=== PATIENT | male | born 1950 | race Caucasian/White ===

== ENCOUNTER 2018-04-09 07:32 | Outpatient (CLI) | payer OTHER ==
[2018-04-18] MEDS ORDERED: PRILOSEC10 M2 PO (10:01)
== END 2018-04-09 07:37 | disposition home or self-care (01) ==
LOC: RAD 07:32
DX: Z76.89 Persons encountering health services in other specified circumstances (principal)

== ENCOUNTER 2018-04-09 08:27 | Outpatient (CLI) | payer OTHER ==
[2018-04-18] MEDS ORDERED: PRILOSEC10 M2 PO (10:01)
== END 2018-04-09 08:34 | disposition home or self-care (01) ==
LOC: EKG 08:27
DX: I49.8 Other specified cardiac arrhythmias (principal)

== ENCOUNTER → 2018-04-24 | Day surgery (SDC) | payer OTHER ==
[~2018-04-24] MED LIST: PRILOSEC10 M2 PO
== END | disposition home or self-care (01) ==
LOC: ADM 04-20 07:30 → CIR.AMB 07:30
DX: M75.121 Complete rotator cuff tear or rupture of right shoulder, not specified as traumatic (principal); M19.011 Primary osteoarthritis, right shoulder; M65.811 Other synovitis and tenosynovitis, right shoulder

== ENCOUNTER 2018-04-26 09:49 | Outpatient (CLI) | payer OTHER | END 2018-04-26 10:02 | disposition home or self-care (01) | LOC: RAD 501 09:49 | DX: M19.011 Primary osteoarthritis, right shoulder (principal) ==

== ENCOUNTER 2021-08-03 13:28 | Outpatient (CLI) | payer OTHER | END 2021-08-03 13:36 | disposition home or self-care (01) | LOC: RAD 13:28 | PROVIDERS: ATTEND Orthopaedic Surgery | DX: M25.552 Pain in left hip (principal); M17.12 Unilateral primary osteoarthritis, left knee ==

== ENCOUNTER 2022-04-07 08:45 | Outpatient (CLI) | payer OTHER | END 2022-04-07 08:50 | disposition home or self-care (01) | LOC: RAD 08:45 | PROVIDERS: ATTEND Orthopaedic Surgery | DX: M17.0 Bilateral primary osteoarthritis of knee (principal) ==

== ENCOUNTER 2022-10-20 10:59 | Outpatient (CLI) | payer OTHER | END 2022-10-20 11:03 | disposition home or self-care (01) | LOC: RAD 10:59 | PROVIDERS: ATTEND Orthopaedic Surgery | DX: M79.605 Pain in left leg (principal) ==

== ENCOUNTER 2024-12-16 06:56 | Outpatient (CLI) | payer OTHER ==
[2024-12-16 08:00] LABS: HEMATOCRIT 43.9 % (39.0-48.0); HEMOGLOBIN 15.6 g/dL (13-16.00); MEAN CELL VOLUME 86.1 fL (80.0-100.00); MEAN CORPUSCULAR HEMOGLOBIN 30.6 pg (27.00-32.0); MEAN CORPUSCULAR HGB CONC 35.5 g/dl (32.0-36.0); PLATELET COUNT 202 K/uL (150-450); RED CELL DISTRIBUTION WIDTH 14.1 % (11.5-14.5)
[2024-12-16 08:09] LABS: PH,URINE 5.5 (5.0-8.0); URINE APPEARANCE Clear; URINE BILIRRUBIN Negative (NEGATIVE); URINE BLOOD Negative; URINE COLOR Yellow; URINE GLUCOSE Negative (NEGATIVE); URINE KETONE Negative (NEGATIVE); URINE LEUKOCYTE Negative; URINE NITRATE Negative; URINE PROTEIN Negative (NEGATIVE); URINE UROBILINOGEN 0.2 E.U./dl
[2024-12-16 08:11] LABS: URINE BACTERIA 3.6 uL (0.0-1933); URINE EPITHELIAL CELLS 0.7 uL (0.0-38.8); URINE RBC 1.9 uL (0.0-20.8); URINE WBC 1.1 uL (0.0-23.2)
[2024-12-16 08:36] LABS: COL EPI 91 SECONDS (82-175)
[2024-12-16 08:54] LABS: INR 0.95; PARTIAL THROMBOPLASTIN TIME 27.3 SECONDS (22.0-34.0); PROTHROMBIN TIME 10.4 SECONDS (9.0-11.5)
[2024-12-16 09:13] LABS: ALBUMIN 3.6 gm/dL (3.4-5.0); BILIRUBIN TOTAL 0.53 mg/dL (0.3-1.2); CALCIUM 9.3 mg/dL (8.5-10.1); CREATININE SERUM 0.9 mg/dL (0.70-1.30); GFR 82.04; GLOBULINA 3.1 G/DL (2.4-3.5); POTASSIUM 4.28 mEq/L (3.5-5.1); TOTAL PROTEIN 6.7 gm/dL (6.4-8.2)
== END 2024-12-16 06:57 | disposition home or self-care (01) ==
LOC: RAD 06:56
PROVIDERS: ATTEND Orthopaedic Surgery
DX: D64.9 Anemia, unspecified (principal); E88.89 Other specified metabolic disorders; D68.8 Other specified coagulation defects; N39.0 Urinary tract infection, site not specified; Z22.322 Carrier or suspected carrier of Methicillin resistant Staphylococcus aureus; E11.9 Type 2 diabetes mellitus without complications; I10 Essential (primary) hypertension; Z76.89 Persons encountering health services in other specified circumstances

== ENCOUNTER 2024-12-25 11:15 | Inpatient (IN) | payer OTHER ==
[~2024-12-25] VITALS: Ht 172.7 cm; Wt 93.9 kg
[2024-12-25] MEDS ORDERED: ATORVALIQ20 MG/5 ML PO (13:11)
[2024-12-30] MEDS ORDERED: CEFAZOLIN SODIUM 1,000 MG VIAL ONE ×2 (09:03→15:57)
[2024-12-30] MEDS ORDERED: TRANEXAMIC ACID 100MG/1ML (1000MG) AMPUL IV ONE (09:04)
[2024-12-30] MEDS ORDERED: BUPIVACAINE HCL/MPF 0.5% 30ML VIAL ONE ×2 (09:06→13:47)
[2024-12-30] MEDS ORDERED: VANCOMYCIN HCL 1,000 MG VIAL ONE ×2 (09:06→09:54)
[2024-12-30] MEDS ORDERED: KETOROLAC TROMETHAMINE 60 MG VIAL IM ONE (09:06)
[2024-12-30] MEDS ORDERED: LIDOCAINE HCL 1%/EPINEPHRINE 20ML VIAL IJ ONE (09:07)
[2024-12-30] MEDS ORDERED: ISOPROPYL ALCOHOL 30 ML OUNCE TOP ONE (09:07)
[2024-12-30] MEDS ORDERED: POLYMYXIN B SULFATE 500,000 U VIAL ONE (09:54)
[2024-12-30] MEDS ORDERED: MORPHINE SULFATE 4 MG/ML VIAL IV SCH (11:00)
[2024-12-30] MEDS ORDERED: TRANEXAMIC ACID 100MG/1ML (1000MG) AMPUL IV SCH (13:30)
[2024-12-30] MEDS ORDERED: ONDANSETRON 4 MG TAB.RAPDIS PO PRN (14:30)
[2024-12-30] MEDS ORDERED: ONDANSETRON HCL 2 MG/ML VIAL IV PRN (14:30)
[2024-12-30] MEDS ORDERED: TRAMADOL HCL 50 MG TABLET PO PRN (14:30)
[2024-12-30] MEDS ORDERED: SODIUM CHLORIDE 0.45 % 1,000 ML IV SCH (14:30)
[2024-12-30] MEDS ORDERED: MEPERIDINE HCL/PF 50 MG/ML VIAL IM PRN (14:30)
[2024-12-30] MEDS ORDERED: PROMETHAZINE HCL 50 MG/ML AMPUL IM PRN (14:30)
[2024-12-30] MEDS ORDERED: PANTOPRAZOLE SODIUM 40 MG TABLET.DR PO NR (15:30)
[2024-12-30] MEDS ORDERED: ONDANSETRON HCL 2 MG/ML VIAL ONE (16:49)
[2024-12-30] MEDS ORDERED: CELECOXIB 200 MG CAPSULE PO SCH (17:00)
[2024-12-30] MEDS ORDERED: ACETAMINOPHEN 325 MG TABLET PO SCH (17:00)
[2024-12-30] MEDS ORDERED: CEFAZOLIN SODIUM 1,000 MG VIAL IV SCH (17:00)
[2024-12-30] MEDS ORDERED: ACETAMINOPHEN 325 MG TABLET PO ONE (20:33)
[2024-12-30] MEDS ORDERED: KETOROLAC TROMETHAMINE 10 MG TABLET PO ONE (20:33)
[2024-12-30] MEDS ORDERED: KETOROLAC TROMETHAMINE 10 MG TABLET PO SCH (21:00)
[2024-12-31 00:28] VITALS: BP 146/75; O2SAT 96
[2024-12-31 06:16] LABS: HEMATOCRIT 36.9 % (39.0-48.0); HEMOGLOBIN 12.5 g/dL (13-16.00); MEAN CELL VOLUME 88.2 fL (80.0-100.00); MEAN CORPUSCULAR HEMOGLOBIN 29.8 pg (27.00-32.0); MEAN CORPUSCULAR HGB CONC 33.8 g/dl (32.0-36.0); PLATELET COUNT 151 K/uL (150-450); RED BLOOD COUNT 4.18 M/uL (4.00-6.00); RED CELL DISTRIBUTION WIDTH 13.6 % (11.5-14.5)
[2024-12-31 08:00] VITALS: BP 112/60; O2SAT 94
[2024-12-31] MEDS ORDERED: PANTOPRAZOLE SODIUM 40 MG TABLET.DR PO SCH (09:00)
[2024-12-31] MEDS ORDERED: RIVAROXABAN 10 MG TAB PO SCH (09:00)
[2024-12-31 15:43] LABS: ALBUMIN 3.2 gm/dL (3.4-5.0); BILIRUBIN TOTAL 1.42 mg/dL (0.3-1.2); CALCIUM 8.2 mg/dL (8.5-10.1); CREATININE SERUM 0.94 mg/dL (0.70-1.30); GFR 78.03; GLOBULINA 2.4 G/DL (2.4-3.5); POTASSIUM 3.88 mEq/L (3.5-5.1); TOTAL PROTEIN 5.6 gm/dL (6.4-8.2)
[2024-12-31 17:08] VITALS: BP 130/67; O2SAT 93
[2025-01-01 00:52] VITALS: BP 131/64; O2SAT 98
[2025-01-01 07:32] LABS: HEMATOCRIT 32.1 % (39.0-48.0); MEAN CELL VOLUME 85.8 fL (80.0-100.00); MEAN CORPUSCULAR HGB CONC 35.7 g/dl (32.0-36.0); PLATELET COUNT 151 K/uL (150-450); RED BLOOD COUNT 3.74 M/uL (4.00-6.00); RED CELL DISTRIBUTION WIDTH 14.1 % (11.5-14.5)
[2025-01-01 07:48] LABS: HEMOGLOBIN 11.5 g/dL (13-16.00); MEAN CORPUSCULAR HEMOGLOBIN 30.7 pg (27.00-32.0)
[2025-01-01] MEDS ORDERED: SENNA/DOCUSATE SODIUM 1 TAB TABLET PO SCH (09:00)
[2025-01-01 10:14] VITALS: BP 140/73
[2025-01-01 17:00] VITALS: BP 126/66; O2SAT 96
== END 2025-01-01 19:51 | DRG 470 ==
LOC: O/R 12-30 06:10 → SURH 12-30 07:45
PROVIDERS: ADMIT Orthopaedic Surgery; ATTEND Orthopaedic Surgery
PROC: 0SRC0J9 Replacement of Right Knee Joint with Synthetic Substitute, Cemented, Open Approach (ICD-10-PCS; principal; 2024-12-30 07:45)
DX: M17.11 Unilateral primary osteoarthritis, right knee (principal); M85.661 Other cyst of bone, right lower leg

== ENCOUNTER 2024-12-25 13:32 | Outpatient (CLI) | payer OTHER ==
[~2024-12-25 13:32] MED LIST changes: +ATORVALIQ20 MG/5 ML PO
== END 2024-12-25 13:36 | disposition home or self-care (01) ==
LOC: RAD 13:32
PROVIDERS: ATTEND Orthopaedic Surgery
DX: M25.551 Pain in right hip (principal)